=== PATIENT | female | born 1970 | race Caucasian/White ===

== ENCOUNTER 2017-04-29 11:50 | Emergency (ER) | payer MEDICAID ==
[2017-04-29] MEDS ORDERED: Sodium Chloride 0.9% 10 ML Syringe FLUSH PRN (12:16)
[2017-04-29] MEDS ORDERED: Iopamidol 612 MG/ML 100 ML Bottle IVPUSH ONE (13:04)
[2017-04-29 13:13] LABS: CHLORIDE,CL 106 mmol/L (98-107); SODIUM,NA 141 mmol/L (136-145)
--- NOTE | 2017-04-29 14:00 | EDM.PDOC ---
ED HPI GENERAL MEDICAL PROBLEM - General Chief Complaint: Abdominal Pain Stated Complaint: ABDOMINAL PAIN Time Seen by Provider: 04/29/17 11:53 Source of Information: Reports: Patient, Old Records, RN, RN Notes Reviewed History Limitations: Reports: No Limitations - History of Present Illness INITIAL COMMENTS - FREE TEXT/NARRATIVE: patient presents emergency room [facility] with multiple complaints. The patient has a strong history of chronic pain syndrome related to multiple areas. 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 The patient states that since last Saturday evening she 's had increasing lower back pain, right greater than left kidney pain, left lower groin pain, pain to the back of her head more so on the right side, nausea , and pain to the chest. The patient states she's also felt very short of breath. Onset Date: 04/26/17 - Related Data Allergies Allergy/AdvReac Type Severity Reaction Status Date / Time ciprofloxacin Allergy Rash Verified 04/29/17 13:37 methadone Allergy Other Verified 04/29/17 13:37 Penicillins Allergy Other Verified 04/29/17 13:37 erythromycin base AdvReac Severe Nausea and Verified 04/29/17 13:37 Vomiting azithromycin [From Zithromax] AdvReac Tachycardia Verified 04/29/17 13:37 fentanyl AdvReac Hallucinati Verified 04/29/17 13:37 ons ED ROS GENERAL - Review of Systems Review Of Systems: See Below Constitutional: Denies: Fever, Chills, Weakness Respiratory: Reports: Shortness of Breath. Denies: Cough Cardiovascular: Reports: Chest Pain. Denies: Lightheadedness, Palpitations GI/Abdominal: Reports: Abdominal Pain, Nausea. Denies: Diarrhea, Vomiting Musculoskeletal: Reports: Back Pain, Muscle Pain, Muscle Stiffness Skin: Reports: No Symptoms Neurological: Denies: Numbness, Paresthesia, Tingling ED EXAM, GI/ABD - Physical Exam Exam: See Below Exam Limited By: No Limitations General Appearance: Alert, No Apparent Distress, Thin, Cachetic Head: Atraumatic, Normocephalic Neck: Supple Respiratory/Chest: No Respiratory Distress, Lungs Clear, Decreased Breath Sounds Cardiovascular: Normal Peripheral Pulses, Regular Rate, Rhythm GI/Abdominal Exam: Normal Bowel Sounds, Soft, Non-Tender Back Exam: Normal Inspection Extremities: Normal Inspection Neurological: Alert, Oriented Skin Exam: Warm, Dry, Intact, Normal Color Course - Orders/Labs/Meds Orders: Active Orders 24 hr Category Date Time Status EKG 12 Lead [EKG Documentation Completion] [RC] STAT Care 04/29/17 12:16 Active Abdomen Pelvis w Cont [CT] Stat Exams 04/29/17 12:21 Taken Chest 2V [CR] Stat Exams 04/29/17 12:16 Taken BENZODIAZEPINE CONF (LCMSMS) Stat Lab 04/29/17 12:45 Received Sodium Chloride 0.9% [Saline Flush] Med 04/29/17 12:16 Active 10 ml FLUSH ASDIRECTED PRN Peripheral IV Insertion Adult [OM.PC] Routine Oth 04/29/17 12:16 Ordered Medication Orders Sodium Chloride (Saline Flush) 10 ml FLUSH ASDIRECTED PRN PRN Reason: Keep Vein Open Labs: Laboratory Tests 04/29/17 04/29/17 04/29/17 Range/Units 12:33 12:33 12:33 WBC 5.4 (4.0-10.0) x10^3/uL RBC 4.11 (4.00-5.50) x10^6/uL Hgb 13.8 (12.0-16.0) g/dL Hct 40.6 (33.0-47.0) % MCV 98.8 H (78.0-93.0) fL MCH 33.6 H (26.0-32.0) pg MCHC 34.0 (32.0-36.0) g/dL RDW Coeff of Tc 12.1 (10.0-15.0) % Plt Count 142 (130-400) x10^3/uL Neut % (Auto) 60.2 (50.0-80.0) % Lymph % (Auto) 27.7 (25.0-50.0) % Perry % (Auto) 8.9 (2.0-11.0) % Eos % (Auto) 2.8 (0.0-4.0) % Baso % (Auto) 0.4 (0.2-1.2) % Sodium 141 (136-145) mmol/L Potassium 3.7 (3.5-5.1) mmol/L Chloride 106 (98-107) mmol/L Carbon Dioxide 25 (21-32) mmol/L BUN 11 (7-18) mg/dL Creatinine 0.8 (0.55-1.02) mg/dL Est Cr Clr Drug Dosing TNP Estimated GFR (MDRD) > 60 Glucose 80 (74-106) mg/dL Lactic Acid 0.8 (0.4-2.0) mmol/L Calcium 9.0 (8.5-10.1) mg/dL Corrected Calcium 9.08 (8.5-10.1) mg/dL Total Bilirubin 0.5 (0.2-1.0) mg/dL AST 10 L (15-37) U/L ALT 14 (14-59) U/L Alkaline Phosphatase 61 (46-116) U/L Creatine Kinase 41 (26-192) U/L POC Troponin I (0.00-0.08) ng/mL C-Reactive Protein < 0.2 (<=0.9) mg/dL Total Protein 7.4 (6.4-8.2) g/dL Albumin 3.9 (3.4-5.0) g/dL Globulin 3.5 Albumin/Globulin Ratio 1.11 Amylase 66 (25-115) U/L Lipase 125 (73-393) U/L Urine Color (YELLOW) Urine Appearance (CLEAR) Urine pH (5.0-8.0) Ur Specific [place] Urine Protein (NEGATIVE) mg/dL Urine Glucose (UA) (NEGATIVE) mg/dL Urine Ketones (NEGATIVE) mg/dL Urine Occult Blood (NEGATIVE) Urine Nitrite (NEGATIVE) Urine Bilirubin (NEGATIVE) Urine Urobilinogen (0.2) EU/dL Ur Leukocyte Esterase (NEGATIVE) Urine RBC (NOT SEEN) /HPF Urine WBC (NOT SEEN) /HPF Ur Squamous Epith Cells (NEGATIVE) /HPF Urine Bacteria (NEGATIVE) /HPF Urine Mucus (NEGATIVE) /LPF Urine Opiates Screen (NEGATIVE) Ur Buprenorphine Scrn (NEGATIVE) Ur Oxycodone Screen (NEGATIVE) Urine Methadone Screen (NEGATIVE) Ur Barbiturates Screen (NEGATIVE) Ur Tricyclics Screen (NEGATIVE) Ur Amphetamine Screen (NEGATIVE) U Methamphetamines Scrn (NEGATIVE) Urine MDMA Screen (NEGATIVE) U Benzodiazepines Scrn (NEGATIVE) U Cocaine Metab Screen (NEGATIVE) U Marijuana (THC) Screen (NEGATIVE) Ethyl Alcohol < 3 (0-3) mg/dL 04/29/17 04/29/17 04/29/17 Range/Units 12:38 12:45 12:45 WBC (4.0-10.0) x10^3/uL RBC (4.00-5.50) x10^6/uL Hgb (12.0-16.0) g/dL Hct (33.0-47.0) % MCV (78.0-93.0) fL MCH (26.0-32.0) pg MCHC (32.0-36.0) g/dL RDW Coeff of Tc (10.0-15.0) % Plt Count (130-400) x10^3/uL Neut % (Auto) (50.0-80.0) % Lymph % (Auto) (25.0-50.0) % Perry % (Auto) (2.0-11.0) % Eos % (Auto) (0.0-4.0) % Baso % (Auto) (0.2-1.2) % Sodium (136-145) mmol/L Potassium (3.5-5.1) mmol/L Chloride (98-107) mmol/L Carbon Dioxide (21-32) mmol/L BUN (7-18) mg/dL Creatinine (0.55-1.02) mg/dL Est Cr Clr Drug Dosing Estimated GFR (MDRD) Glucose (74-106) mg/dL Lactic Acid (0.4-2.0) mmol/L Calcium (8.5-10.1) mg/dL Corrected Calcium (8.5-10.1) mg/dL Total Bilirubin (0.2-1.0) mg/dL AST (15-37) U/L ALT (14-59) U/L Alkaline Phosphatase (46-116) U/L Creatine Kinase (26-192) U/L POC Troponin I 0.00 (0.00-0.08) ng/mL C-Reactive Protein (<=0.9) mg/dL Total Protein (6.4-8.2) g/dL Albumin (3.4-5.0) g/dL Globulin Albumin/Globulin Ratio Amylase (25-115) U/L Lipase (73-393) U/L Urine Color Yellow (YELLOW) Urine Appearance Slightly cloudy H (CLEAR) Urine pH 5.5 (5.0-8.0) Ur Specific [place] 1.025 Urine Protein Negative (NEGATIVE) mg/dL Urine Glucose (UA) Negative (NEGATIVE) mg/dL Urine Ketones Negative (NEGATIVE) mg/dL Urine Occult Blood Negative (NEGATIVE) Urine Nitrite Negative (NEGATIVE) Urine Bilirubin Negative (NEGATIVE) Urine Urobilinogen 0.2 (0.2) EU/dL Ur Leukocyte Esterase Negative (NEGATIVE) Urine RBC 0-5 (NOT SEEN) /HPF Urine WBC 0-5 (NOT SEEN) /HPF Ur Squamous Epith Cells Moderate H (NEGATIVE) /HPF Urine Bacteria Few H (NEGATIVE) /HPF Urine Mucus Rare H (NEGATIVE) /LPF Urine Opiates Screen Negative (NEGATIVE) Ur Buprenorphine Scrn Negative (NEGATIVE) Ur Oxycodone Screen Negative (NEGATIVE) Urine Methadone Screen Negative (NEGATIVE) Ur Barbiturates Screen Negative (NEGATIVE) Ur Tricyclics Screen Negative (NEGATIVE) Ur Amphetamine Screen Negative (NEGATIVE) U Methamphetamines Scrn Negative (NEGATIVE) Urine MDMA Screen Negative (NEGATIVE) U Benzodiazepines Scrn Positive H (NEGATIVE) U Cocaine Metab Screen Negative (NEGATIVE) U Marijuana (THC) Screen Negative (NEGATIVE) Ethyl Alcohol (0-3) mg/dL Meds: Medications Generic Name Dose Route Start Last Admin Trade Name Freq PRN Reason Stop Dose Admin Sodium Chloride 10 ml 04/29/17 12:16 Saline Flush FLUSH ASDIRECTED PRN Keep Vein Open Discontinued Medications Generic Name Dose Route Start Last Admin Trade Name Freq PRN Reason Stop Dose Admin Iopamidol 100 ml 04/29/17 13:04 04/29/17 13:55 Isovue-300 (61%) IVPUSH 04/29/17 13:05 100 ml ONETIME ONE Administration - Radiology Interpretation Free Text/Narrative:: CXR: Airway disease CT Abd/Pelvis: The uterus is retroflexed with 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 Stable 6.4cm simple appearing cyst in the left lower lobe of the liver See scanned reports in EMR Departure - Departure Time of Disposition: 14:39 Disposition: Home, Self-Care 01 Condition: Good Clinical Impression: Chronic pain syndrome - Discharge Information Instructions: Chronic Pain, Adult Referrals: Eli Hamilton MD [Primary Care Provider] - Forms: ED Department Discharge Additional Instructions: 1. Stay well hydrated and rest 2. I do not see any reason not to have your surgery later this week 3. See your Primary as symptoms warrant 4. Call us with any questions/concerns - Problem List Review Problem List Initiated/Reviewed/Updated: Yes - My Orders Last 24 Hours: My Active Orders 04/29/17 12:16 EKG 12 Lead [EKG Documentation Completion] [RC] STAT Chest 2V [CR] Stat Sodium Chloride 0.9% [Saline Flush] 10 ml FLUSH ASDIRECTED PRN Peripheral IV Insertion Adult [OM.PC] Routine 04/29/17 12:21 Abdomen Pelvis w Cont [CT] Stat 04/29/17 12:45 BENZODIAZEPINE CONF (LCMSMS) Stat - Assessment/Plan Last 24 Hours: My Active Orders 04/29/17 12:16 EKG 12 Lead [EKG Documentation Completion] [RC] STAT Chest 2V [CR] Stat Sodium Chloride 0.9% [Saline Flush] 10 ml FLUSH ASDIRECTED PRN Peripheral IV Insertion Adult [OM.PC] Routine 04/29/17 12:21 Abdomen Pelvis w Cont [CT] Stat 04/29/17 12:45 BENZODIAZEPINE CONF (LCMSMS) Stat Assessment:: Chronic Pain Syndrome Plan: labs and CT scan were reviewed with the patient. No emergency was found. It is quite possible her symptoms could be exacerbation of her chronic pain syndrome, however that may be less likely as she is taking her prescription pain medication. I believe at this point the patient is medically okay to proceed with surgery in 2 days. The patient states that she will follow up with her primary care provider prior to surgery. I recommend that the patient follow up with her primary care provider as her symptoms warrant. The patient verbalizes understanding of her discharge instructions, labs, and CT scan.
== END 2017-04-29 15:15 | disposition home or self-care (01) ==
LOC: VM.ED 11:50
DX: G89.4 Chronic pain syndrome (principal); Z88.8 Allergy status to other drugs, medicaments and biological substances; Z88.1 Allergy status to other antibiotic agents; Z88.0 Allergy status to penicillin
CPT/HCPCS: 36415; 71046; 74177; 80053; 80305; 81001; 82150; 82550; 83605; 83690; 84484; 85025; 86140; 93005; 99285; G0480; Q9967

== ENCOUNTER 2019-04-24 04:55 | Emergency (ER) | payer MEDICAID ==
[2019-04-24] MEDS ORDERED: Sodium Chloride 0.9% 10 ML Syringe FLUSH PRN (06:00)
[2019-04-24] MEDS ORDERED: Sodium Chloride 0.9% 1,000 ML IV ONE (06:05)
[2019-04-24] MEDS ORDERED: Metoclopramide 10 MG/2 ML SDV IVPUSH ONE (06:05)
[2019-04-24 06:27] LABS: BARBITURATE SCREEN,URINE NEGATIVE (NEGATIVE); BENZODIAZEPINES SCREEN,URINE POSITIVE (NEGATIVE); EDDP,URINE SCREEN NEGATIVE (NEGATIVE); METHAMPHETAMINE SCREEN, URINE NEGATIVE (NEGATIVE); TCA SCREEN,URINE NEGATIVE (NEGATIVE); THC SCREEN,URINE 50 NG/ML NEGATIVE (NEGATIVE)
[2019-04-24 06:47] LABS: ANION GAP 14.1 mmol/L (10-20); CHLORIDE,CL 105 mmol/L (98-107); SODIUM,NA 142 mmol/L (136-145)
[2019-04-24] MEDS ORDERED: Iopamidol 612 MG/ML 100 ML Bottle IVPUSH ONE (07:56)
--- NOTE | 2019-04-24 08:56 | CT ---
[id number] CT/CT Abdomen Pelvis W IV EXAM: CT Abdomen Pelvis W IV CLINICAL DATA: ABDOMINAL PAIN COMPARISON: CORRELATION IS MADE WITH THE EXAM OF MAY 07, 2018 FINDINGS: There are small stable hepatic cysts The gallbladder is not distended. The gallbladder wall is normal There is no evidence of appendicitis The pelvis shows no mass or adenopathy The liver and spleen, kidneys and adrenals, pancreas and aorta show no acute abnormalities The visceral vessels demonstrate normal enhancement. Thickening of the urinary bladder wall likely relates to incomplete distention There is no bowel wall thickening or pneumatosis intestinalis There is no free fluid or free air IMPRESSION: NO DEFINITE ACUTE PROCESS Judson Lorenzana MD 04/24/19 0854 Thank you for allowing us to participate in the care of your patient.
--- NOTE | 2019-04-24 14:00 | EDM.PDOC ---
ED HPI GENERAL MEDICAL PROBLEM - General Chief Complaint: Abdominal Pain Stated Complaint: Abdominal Pain Time Seen by Provider: 04/24/19 05:10 Source of Information: Reports: Patient History Limitations: Reports: No Limitations - History of Present Illness INITIAL COMMENTS - FREE TEXT/NARRATIVE: Pt. presents to ER with complaints of abdominal discomfort, bloating, distention that she has been experiencing for months. Pt. states that she he a history of pelvic mass and has undergone hysterectomy for chronic abdominal discomfort. She appears to have been seen in clinic on 04/15/2019 with complaints of epigastric pain, fullness, and nausea. She states that she has had decreased bowel movements, both in size and frequency as well. She also has a history of a liver cyst and feels that this is back as well. She states that she has been chilled. She has not been checking her temperature. Denies any jaundice. No blood in her stools. She states that she has been experiencing pruritus, especially to torso. Onset Date: 04/07/19 Location: Reports: Abdomen Quality: Reports: Ache, Dull, Pressure, Sharp Severity: Severe Worsens with: Reports: Movement Associated Symptoms: Reports: Fever/Chills, Nausea/Vomiting Abdominal Pain Score (Numeric/FACES): 7 - Related Data Allergies Allergy/AdvReac Type Severity Reaction Status Date / Time ciprofloxacin Allergy Rash Verified 04/24/19 09:06 methadone Allergy Other Verified 04/24/19 09:06 Penicillins Allergy Other Verified 04/24/19 09:06 erythromycin base AdvReac Severe Nausea and Verified 04/24/19 09:06 Vomiting azithromycin [From Zithromax] AdvReac Tachycardia Verified 04/24/19 09:06 fentanyl AdvReac Hallucinati Verified 04/24/19 09:06 ons Home Meds: Home Meds ALPRAZolam 2 mg PO BID PRN 04/29/17 [History] Amoxicillin [Amoxil] 875 mg PO Q12H 04/29/17 [History] Aspirin 81 mg PO ASDIRECTED PRN 04/29/17 [History] Clobetasol [Temovate 0.05% Crm] 1 applic TOP DAILY 04/29/17 [History] Hydrocodone/Acetaminophen [Hydrocodon-Acetaminophn 10-325] 1 tab PO Q6H PRN [History] Ketoconazole [Nizoral 2% Crm] 1 applic TOP DAILY 04/29/17 [History] Lidocaine/Prilocaine [EMLA Crm] 1 applic TOP ASDIRECTED 04/29/17 [History] Naproxen Sodium 220 - 440 mg PO BID PRN 04/29/17 [History] Ondansetron [Ondansetron ODT] 8 mg PO TID PRN 04/29/17 [History] Past Medical History Cardiovascular History: Reports: Other (See Below) Other Cardiovascular History: cerebrovascular disease Respiratory History: Reports: Other (See Below) Other Respiratory History: pulmonary nodule Gastrointestinal History: Reports: Other (See Below) Other Gastrointestinal History: hepatic cyst. chronic generalized abd pain SENIOR ACCOUNTING SPECIALIST History: Reports: Endometriosis, Other (See Below) Other SENIOR ACCOUNTING SPECIALIST History: menorrhagia with irreg cycle breast cyst. chronic pelvic pain. endometrioma of ovary. ovarian mass. 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 Psychiatric History: Reports: Anxiety, PTSD - Past Surgical History Female Surgical History: Reports: Oophorectomy Social & Family History - Tobacco Use Smoking Status *Q: Current Every Day Smoker Years of Tobacco use: 26 Packs/Tins Daily: 0.5 - Recreational Drug Use Recreational Drug Use: No ED ROS GENERAL - Review of Systems Review Of Systems: See Below Constitutional: Reports: No Symptoms HEENT: Reports: No Symptoms Respiratory: Reports: No Symptoms Cardiovascular: Reports: No Symptoms Endocrine: Reports: No Symptoms GI/Abdominal: Reports: Abdominal Pain, Anorexia, Decreased Appetite, Distension , Nausea, Vomiting : Reports: No Symptoms Musculoskeletal: Reports: No Symptoms Skin: Reports: Dryness, Other Neurological: Reports: No Symptoms Psychiatric: Reports: No Symptoms Hematologic/Lymphatic: Reports: No Symptoms Immunologic: Reports: No Symptoms ED EXAM, GENERAL - Physical Exam Exam: See Below Exam Limited By: No Limitations General Appearance: Alert, WD/WN, No Apparent Distress Eye Exam: Bilateral Eye: EOMI, PERRL Nose: Normal Inspection, Normal Mucosa, No Blood Throat/Mouth: Normal Inspection, Normal Lips, Normal Teeth, Normal Gums, Normal Oropharynx, Normal Voice, No Airway Compromise Head: Atraumatic, Normocephalic Neck: Normal Inspection, Supple, Non-Tender, Full Range of Motion Respiratory/Chest: No Respiratory Distress, Lungs Clear, Normal Breath Sounds, No Accessory Muscle Use, Chest Non-Tender Cardiovascular: Normal Peripheral Pulses, Regular Rate, Rhythm, No Edema, No Gallop, No JVD, No Murmur, No Rub Peripheral Pulses: 4+: Radial (L) GI/Abdominal: Soft, No Distention, No Mass, Guarding, Tender, Other ( exquisitely tender to palpation with guarding. Complains of rebound tenderness as well.) (Female) Exam: Deferred Rectal (Female) Exam: Deferred Back Exam: Normal Inspection, Full Range of Motion Extremities: Normal Inspection, Normal Range of Motion, Non-Tender, No Pedal Edema, Normal Capillary Refill Neurological: Alert, Oriented, CN II-XII Intact, Normal Cognition, Normal Gait, Normal Reflexes, No Motor/Sensory Deficits Psychiatric: Tearful Skin Exam: Warm, Dry, Intact, Normal Color Lymphatic: No Adenopathy Course - Vital Signs Last Recorded V/S: Last Vital Signs Temp 36.6 C 04/24/19 05:00 Pulse 77 04/24/19 05:00 Resp 16 04/24/19 05:00 BP 108/64 04/24/19 05:00 Pulse Ox 98 04/24/19 05:00 - Orders/Labs/Meds Orders: Active Orders 24 hr Category Date Time Status Peripheral IV Insertion Adult [OM.PC] Routine Oth 04/24/19 06:01 Ordered Labs: Laboratory Tests 04/24/19 04/24/19 04/24/19 Range/Units 06:00 06:00 06:00 WBC (4.0-10.0) x10^3/uL RBC (4.00-5.50) x10^6/uL Hgb (12.0-16.0) g/dL Hct (33.0-47.0) % MCV (78.0-93.0) fL MCH (26.0-32.0) pg MCHC (32.0-36.0) g/dL RDW Coeff of Tc (10.0-15.0) % Plt Count (130-400) x10^3/uL Neut % (Auto) (50.0-80.0) % Lymph % (Auto) (25.0-50.0) % [place] % (Auto) (2.0-11.0) % Eos % (Auto) (0.0-4.0) % Baso % (Auto) (0.2-1.2) % PT (10.0-12.8) SEC INR (2.0-3.5) Sodium (136-145) mmol/L Potassium (3.5-5.1) mmol/L Chloride (98-107) mmol/L Carbon Dioxide (21-32) mmol/L Anion Gap (10-20) mmol/L BUN (7-18) mg/dL Creatinine (0.55-1.02) mg/dL Est Cr Clr Drug Dosing Estimated GFR (MDRD) Glucose (74-106) mg/dL Lactic Acid (0.4-2.0) mmol/L Calcium (8.5-10.1) mg/dL Corrected Calcium (8.5-10.1) mg/dL Phosphorus (2.6-4.7) mg/dL Magnesium (1.8-2.4) mg/dL Total Bilirubin (0.2-1.0) mg/dL AST (15-37) U/L ALT (14-59) U/L Alkaline Phosphatase (46-116) U/L C-Reactive Protein (<=0.9) mg/dL Total Protein (6.4-8.2) g/dL Albumin (3.4-5.0) g/dL Globulin Albumin/Globulin Ratio Amylase (25-115) U/L Lipase (73-393) U/L Urine Color Yellow (YELLOW) Urine Appearance Clear (CLEAR) Urine pH 5.5 (5.0-8.0) Ur Specific [place] 1.015 Urine Protein Negative (NEGATIVE) mg/dL Urine Glucose (UA) Negative (NEGATIVE) mg/dL Urine Ketones Negative (NEGATIVE) mg/dL Urine Occult Blood Negative (NEGATIVE) Urine Nitrite Negative (NEGATIVE) Urine Bilirubin Negative (NEGATIVE) Urine Urobilinogen 0.2 (0.2) EU/dL Ur Leukocyte Esterase Negative (NEGATIVE) Urine RBC 0-5 (NOT SEEN) /HPF Urine WBC 0-5 (NOT SEEN) /HPF Ur Squamous Epith Cells Rare (NEGATIVE) /HPF Amorphous Sediment Rare Urine Bacteria Rare (NEGATIVE) /HPF Urine Mucus Few H (NEGATIVE) /LPF POC Urine HCG, Qual Negative (NEGATIVE) Urine Opiates Screen Positive H (NEGATIVE) Ur Buprenorphine Scrn Negative (NEGATIVE) Ur Oxycodone Screen Negative (NEGATIVE) Ur EDDP (Meth Metab) Negative (NEGATIVE) Urine Methadone Screen Negative (NEGATIVE) Ur Barbiturates Screen Negative (NEGATIVE) Ur Tricyclics Screen Negative (NEGATIVE) Ur Phencyclidine Scrn Negative (NEGATIVE) Ur Amphetamine Screen Negative (NEGATIVE) U Methamphetamines Scrn Negative (NEGATIVE) Urine MDMA Screen Negative (NEGATIVE) U Benzodiazepines Scrn Positive H (NEGATIVE) U Cocaine Metab Screen Negative (NEGATIVE) U Marijuana (THC) Screen Negative (NEGATIVE) 04/24/19 04/24/19 04/24/19 Range/Units 06:17 06:17 06:17 WBC 6.1 (4.0-10.0) x10^3/uL RBC 4.27 (4.00-5.50) x10^6/uL Hgb 14.4 (12.0-16.0) g/dL Hct 41.0 (33.0-47.0) % MCV 96.0 H (78.0-93.0) fL MCH 33.7 H (26.0-32.0) pg MCHC 35.1 (32.0-36.0) g/dL RDW Coeff of Tc 12.8 (10.0-15.0) % Plt Count 176 (130-400) x10^3/uL Neut % (Auto) 56.7 (50.0-80.0) % Lymph % (Auto) 33.1 (25.0-50.0) % [place] % (Auto) 7.4 (2.0-11.0) % Eos % (Auto) 2.6 (0.0-4.0) % Baso % (Auto) 0.2 (0.2-1.2) % PT 10.2 (10.0-12.8) SEC INR 0.9 L (2.0-3.5) Sodium 142 (136-145) mmol/L Potassium 4.1 (3.5-5.1) mmol/L Chloride 105 (98-107) mmol/L Carbon Dioxide 27 (21-32) mmol/L Anion Gap 14.1 (10-20) mmol/L BUN 6 L (7-18) mg/dL Creatinine 0.8 (0.55-1.02) mg/dL Est Cr Clr Drug Dosing TNP Estimated GFR (MDRD) > 60 Glucose 94 (74-106) mg/dL Lactic Acid (0.4-2.0) mmol/L Calcium 9.1 (8.5-10.1) mg/dL Corrected Calcium 9.10 (8.5-10.1) mg/dL Phosphorus 4.0 (2.6-4.7) mg/dL Magnesium 2.1 (1.8-2.4) mg/dL Total Bilirubin 0.5 (0.2-1.0) mg/dL AST 11 L (15-37) U/L ALT 18 (14-59) U/L Alkaline Phosphatase 68 (46-116) U/L C-Reactive Protein < 0.2 (<=0.9) mg/dL Total Protein 7.3 (6.4-8.2) g/dL Albumin 4.0 (3.4-5.0) g/dL Globulin 3.3 Albumin/Globulin Ratio 1.21 Amylase 74 (25-115) U/L Lipase 128 (73-393) U/L Urine Color (YELLOW) Urine Appearance (CLEAR) Urine pH (5.0-8.0) Ur Specific [place] Urine Protein (NEGATIVE) mg/dL Urine Glucose (UA) (NEGATIVE) mg/dL Urine Ketones (NEGATIVE) mg/dL Urine Occult Blood (NEGATIVE) Urine Nitrite (NEGATIVE) Urine Bilirubin (NEGATIVE) Urine Urobilinogen (0.2) EU/dL Ur Leukocyte Esterase (NEGATIVE) Urine RBC (NOT SEEN) /HPF Urine WBC (NOT SEEN) /HPF Ur Squamous Epith Cells (NEGATIVE) /HPF Amorphous Sediment Urine Bacteria (NEGATIVE) /HPF Urine Mucus (NEGATIVE) /LPF POC Urine HCG, Qual (NEGATIVE) Urine Opiates Screen (NEGATIVE) Ur Buprenorphine Scrn (NEGATIVE) Ur Oxycodone Screen (NEGATIVE) Ur EDDP (Meth Metab) (NEGATIVE) Urine Methadone Screen (NEGATIVE) Ur Barbiturates Screen (NEGATIVE) Ur Tricyclics Screen (NEGATIVE) Ur Phencyclidine Scrn (NEGATIVE) Ur Amphetamine Screen (NEGATIVE) U Methamphetamines Scrn (NEGATIVE) Urine MDMA Screen (NEGATIVE) U Benzodiazepines Scrn (NEGATIVE) U Cocaine Metab Screen (NEGATIVE) U Marijuana (THC) Screen (NEGATIVE) 04/24/19 Range/Units 06:17 WBC (4.0-10.0) x10^3/uL RBC (4.00-5.50) x10^6/uL Hgb (12.0-16.0) g/dL Hct (33.0-47.0) % MCV (78.0-93.0) fL MCH (26.0-32.0) pg MCHC (32.0-36.0) g/dL RDW Coeff of Tc (10.0-15.0) % Plt Count (130-400) x10^3/uL Neut % (Auto) (50.0-80.0) % Lymph % (Auto) (25.0-50.0) % [place] % (Auto) (2.0-11.0) % Eos % (Auto) (0.0-4.0) % Baso % (Auto) (0.2-1.2) % PT (10.0-12.8) SEC INR (2.0-3.5) Sodium (136-145) mmol/L Potassium (3.5-5.1) mmol/L Chloride (98-107) mmol/L Carbon Dioxide (21-32) mmol/L Anion Gap (10-20) mmol/L BUN (7-18) mg/dL Creatinine (0.55-1.02) mg/dL Est Cr Clr Drug Dosing Estimated GFR (MDRD) Glucose (74-106) mg/dL Lactic Acid 1.0 (0.4-2.0) mmol/L Calcium (8.5-10.1) mg/dL Corrected Calcium (8.5-10.1) mg/dL Phosphorus (2.6-4.7) mg/dL Magnesium (1.8-2.4) mg/dL Total Bilirubin (0.2-1.0) mg/dL AST (15-37) U/L ALT (14-59) U/L Alkaline Phosphatase (46-116) U/L C-Reactive Protein (<=0.9) mg/dL Total Protein (6.4-8.2) g/dL Albumin (3.4-5.0) g/dL Globulin Albumin/Globulin Ratio Amylase (25-115) U/L Lipase (73-393) U/L Urine Color (YELLOW) Urine Appearance (CLEAR) Urine pH (5.0-8.0) Ur Specific [place] Urine Protein (NEGATIVE) mg/dL Urine Glucose (UA) (NEGATIVE) mg/dL Urine Ketones (NEGATIVE) mg/dL Urine Occult Blood (NEGATIVE) Urine Nitrite (NEGATIVE) Urine Bilirubin (NEGATIVE) Urine Urobilinogen (0.2) EU/dL Ur Leukocyte Esterase (NEGATIVE) Urine RBC (NOT SEEN) /HPF Urine WBC (NOT SEEN) /HPF Ur Squamous Epith Cells (NEGATIVE) /HPF Amorphous Sediment Urine Bacteria (NEGATIVE) /HPF Urine Mucus (NEGATIVE) /LPF POC Urine HCG, Qual (NEGATIVE) Urine Opiates Screen (NEGATIVE) Ur Buprenorphine Scrn (NEGATIVE) Ur Oxycodone Screen (NEGATIVE) Ur EDDP (Meth Metab) (NEGATIVE) Urine Methadone Screen (NEGATIVE) Ur Barbiturates Screen (NEGATIVE) Ur Tricyclics Screen (NEGATIVE) Ur Phencyclidine Scrn (NEGATIVE) Ur Amphetamine Screen (NEGATIVE) U Methamphetamines Scrn (NEGATIVE) Urine MDMA Screen (NEGATIVE) U Benzodiazepines Scrn (NEGATIVE) U Cocaine Metab Screen (NEGATIVE) U Marijuana (THC) Screen (NEGATIVE) Meds: Medications Discontinued Medications Generic Name Dose Route Start Last Admin Trade Name Freq PRN Reason Stop Dose Admin Sodium Chloride 1,000 mls @ 1,000 mls/hr 04/24/19 06:05 04/24/19 06:35 Normal Saline IV 04/24/19 07:04 1,000 mls/hr .BOLUS ONE Administration Iopamidol 100 ml 04/24/19 07:56 04/24/19 10:01 Isovue-300 (61%) IVPUSH 04/24/19 07:57 100 ml ONETIME ONE Administration Metoclopramide HCl 10 mg 04/24/19 06:05 04/24/19 06:35 Reglan IVPUSH 04/24/19 06:06 10 mg ONETIME ONE Administration Sodium Chloride 10 ml 04/24/19 06:00 Saline Flush FLUSH ASDIRECTED PRN Keep Vein Open - Radiology Interpretation Free Text/Narrative:: CT abdomen and pelvis with contrast obtained and were negative for acute pathology. Departure - Departure Time of Disposition: 09:20 Disposition: Home, Self-Care 01 Clinical Impression: Abdominal pain - Discharge Information Instructions: Abdominal Pain, Adult, Abdominal Bloating Referrals: Eli Hamilton MD [Primary Care Provider] - Forms: ED Department Discharge Additional Instructions: Home to rest. Follow-up with [facility] as needed. Sepsis Event Note - Evaluation Sepsis Screening Result: No Definite Risk - Focused Exam Vital Signs: Vital Signs Temp Pulse Resp BP Pulse Ox 04/24/19 05:00 36.6 C 77 16 108/64 98 Date Exam was Performed: 04/24/19 Time Exam was Performed: 13:44 - My Orders Last 24 Hours: My Active Orders 04/24/19 06:01 Peripheral IV Insertion Adult [OM.PC] Routine - Assessment/Plan Last 24 Hours: My Active Orders 04/24/19 06:01 Peripheral IV Insertion Adult [OM.PC] Routine Plan: Pt. story is very hard to follow. She was reassured that there was not acute pathological findings noted on CT. Advised to follow-up in clinic as needed and was reassured that there was no acute life-threatening finding noted on CT. Continue with current medications.
== END 2019-04-24 09:20 | disposition home or self-care (01) ==
LOC: VM.ED 04:55
DX: R10.13 Epigastric pain (principal); F17.210 Nicotine dependence, cigarettes, uncomplicated; F41.9 Anxiety disorder, unspecified; Z79.82 Long term (current) use of aspirin; Z79.899 Other long term (current) drug therapy; Z88.1 Allergy status to other antibiotic agents; Z88.0 Allergy status to penicillin; Z88.5 Allergy status to narcotic agent
CPT/HCPCS: 36415; 74177; 80053; 80305; 81001; 81025; 82150; 83605; 83690; 83735; 84100; 85025; 85610; 86140; 96361; 96374; 99284; J2765; J7030; Q9967

== ENCOUNTER 2019-09-29 01:00 | Emergency (ER) | payer MEDICAID ==
[2019-09-29] MEDS ORDERED: Sodium Chloride 0.9% 10 ML Syringe FLUSH PRN (01:31)
--- NOTE | 2019-09-29 02:08 | EDM.PDOC ---
ED HPI GENERAL MEDICAL PROBLEM - General Chief Complaint: General Stated Complaint: Vague / General Complaints Time Seen by Provider: 09/29/19 01:09 Source of Information: Reports: Patient History Limitations: Reports: No Limitations - History of Present Illness INITIAL COMMENTS - FREE TEXT/NARRATIVE: Pt. presents to ER with numerous complaints. Pt. states that she has been exp eriencing a fever (subjective and as noted in clinic), myalgias, arthralgias, unintended weight loss, and throat pain for at least the past 2 weeks. She states that she has had intermittent cough and noted some blood tinged sputum. She reports swelling to the lymph nodes of her neck, and describes what sounds like lymphadenopathy to her axillae. She complains of sore throat and is scheduled to undergo a biopsy in the near future.She also complains of painful lumps to her extremities, R side greater than left. She also complains of some rash to her extremities and torso and has been experiencing this for some time. She was actually complaining of rash and pruritus to her extremities when she was seen by me in the ER in April for abdominal pain. She states that the rash comes and goes. She has yet to see derm. Pt. also complains of some intermittent chest discomfort. She states that the discomfort is always there, but is worse with deep breathing. She complains of bone pain to her neck, back, ribs, arms (R greater than L) as well as to her knees and ankles. She is scheduled to seen rheumatology at the end of Oct. She complains of arthralgias to most joints as well and neck and back. Pt. had a telehealth visit today with Dr. Hamilton. Her note will be attached to this document, but pt. reports similar symptoms tonight. She was febrile in the clinic today (temp 101) and she was scheduled for labs to be taken tomorrow, including CBC, CRP, CMP, BCx2, and SARS-COV-2 RNA. Pt. is concerned that she has been experiencing headache and pain/weakness in her extremities, R greater than L. She states that she feels fatigued and globally weak. She states that he Mother stated that she thought she had some confused speech as well recently, which has also been intermittent in nature. T he pain and weakness and extremity weakness has been going on for some time (at least a week). Pt. denies any abdominal discomfort. No dysuria. Denies any diarrhea. She states that she did vomit once today after eating. Pt. has a history of advanced tooth decay. She states that she has been told she needs to have all of her teeth extracted, but this has not been set up at this point. Associated Symptoms: Reports: Confusion (intermittent confused speech,), Chest Pain, Cough, Fever/Chills, Headaches, Loss of Appetite, Malaise, Nausea/Vomiting, Rash, Weakness Generalized Pain Score (Numeric/FACES): 8 - Related Data Allergies Allergy/AdvReac Type Severity Reaction Status Date / Time ciprofloxacin Allergy Rash Verified 09/29/19 01:11 methadone Allergy Other Verified 09/29/19 01:11 Penicillins Allergy Other Verified 09/29/19 01:11 erythromycin base AdvReac Severe Nausea and Verified 09/29/19 01:11 Vomiting azithromycin [From Zithromax] AdvReac Tachycardia Verified 09/29/19 01:11 fentanyl AdvReac Hallucinati Verified 09/29/19 01:11 ons Home Meds: Home Meds ALPRAZolam 2 mg PO BID PRN 04/29/17 [History] Amoxicillin [Amoxil] 875 mg PO Q12H 04/29/17 [History] Aspirin 81 mg PO ASDIRECTED PRN 04/29/17 [History] Clobetasol [Temovate 0.05% Crm] 1 applic TOP DAILY 04/29/17 [History] Hydrocodone/Acetaminophen [Hydrocodon-Acetaminophn 10-325] 1 tab PO Q6H PRN 04/29/17 [History] Ketoconazole [Nizoral 2% Crm] 1 applic TOP DAILY 04/29/17 [History] Lidocaine/Prilocaine [EMLA Crm] 1 applic TOP ASDIRECTED 04/29/17 [History] Naproxen Sodium 220 - 440 mg PO BID PRN 04/29/17 [History] Ondansetron [Ondansetron ODT] 8 mg PO TID PRN 04/29/17 [History] Past Medical History Cardiovascular History: Reports: Other (See Below) Other Cardiovascular History: cerebrovascular disease Respiratory History: Reports: Other (See Below) Other Respiratory History: pulmonary nodule Gastrointestinal History: Reports: Other (See Below) Other Gastrointestinal History: hepatic cyst. chronic generalized abd pain [employer] History: Reports: Endometriosis, Other (See Below) Other [employer] History: menorrhagia with irreg cycle breast cyst. chronic pelvic pain. endometrioma of ovary. ovarian mass. 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 Psychiatric History: Reports: Anxiety, PTSD - Past Surgical History Female Surgical History: Reports: Oophorectomy ED ROS GENERAL - Review of Systems Review Of Systems: See Below Constitutional: Reports: Fever, Chills, Malaise, Weakness, Fatigue, Decreased Appetite, Weight Loss HEENT: Reports: Dental Pain Respiratory: Reports: Shortness of Breath, Cough, Sputum, Hemoptysis Cardiovascular: Reports: Chest Pain, Lightheadedness, Palpitations Endocrine: Reports: Fatigue GI/Abdominal: Reports: Nausea, Vomiting : Reports: Frequency Musculoskeletal: Reports: Shoulder Pain, Arm Pain, Back Pain, Leg Pain, Joint Pain, Joint Swelling, Muscle Pain Skin: Reports: Pruritis, Rash, Erythema Neurological: Reports: Confusion (confused speech by history), Headache, Paresthesia (Intermittent in R upper and lower extremity, but associated with pain.). Denies: Change in Speech, Gait Disturbance Psychiatric: Reports: Anxiety Hematologic/Lymphatic: Reports: Swollen Glands ED EXAM, GENERAL - Physical Exam Exam: See Below Exam Limited By: No Limitations General Appearance: Alert, WD/WN, Anxious, Moderate Distress Eye Exam: Bilateral Eye: EOMI, Normal Fundi, Normal Inspection, PERRL Ears: Normal External Exam, Normal Canal, Hearing Grossly Normal, Normal TMs Ear Exam: Bilateral Ear: TM normal Nose: Normal Inspection, No Blood Throat/Mouth: Normal Lips, No Airway Compromise, Other (severe decay/dental caries with numerous fractured teeth. No unilateral pharyngeal swelling. No obvious large abscesses noted. Severe periodontal disease with some cellulitis and maceration of the gums noted.) Head: Atraumatic, Normocephalic Neck: Normal Inspection, Full Range of Motion, Tender Lateral, Other (Tenderness to palpation of anterior and posterior cervical chain. Mild anterior cervical adenopathy.) Respiratory/Chest: Lungs Clear, No Accessory Muscle Use, Other (respirophasic chest pain) Cardiovascular: Normal Peripheral Pulses, Regular Rate, Rhythm, No Edema, No Murmur Peripheral Pulses: 4+: Radial (R) GI/Abdominal: Soft, Non-Tender, No Organomegaly, No Distention (Female) Exam: Deferred Rectal (Female) Exam: Deferred Back Exam: Full Range of Motion, Other (complains of tenderness to midline neck and back pain, as well as discomfort to the posterior lower ribs.) Extremities: Normal Inspection, Leg Pain, Other ([place] tenderness to but upper and lower extremities. Severe arthralgias. No obvious trauma noted. ) Neurological: Alert, Oriented, CN II-XII Intact, Normal Cognition, Normal Gait, No Motor/Sensory Deficits Psychiatric: Normal Affect, Anxious Skin Exam: Warm, Dry, Intact, Normal Color, Other (Reports "rash". There is no widespread urticaria or erythema. She has one small subcentimeter erthematous discoid lesion to her L posterior proximal forarm that she is very worried about, but no other lesions. ) Lymphatic: Other (Discomfort on palpation to prearicular, postauricular, anterior and posterior cervical nodes. Minimal lymphadenopathy noted.) EKG INTERPRETATION Rhythm: NSR Hamilton: Normal P-Wave: Present QRS: Normal ST-T: Normal QT: Normal Course - Vital Signs Last Recorded V/S: Last Vital Signs Temp 36.4 C 09/29/19 01:05 Pulse 90 09/29/19 01:05 Resp 14 09/29/19 01:05 BP 133/87 09/29/19 01:05 Pulse Ox 100 09/29/19 01:05 - Orders/Labs/Meds Orders: Active Orders 24 hr Category Date Time Status EKG Documentation Completion [RC] STAT Care 09/29/19 01:31 Active Chest 2V [CR] Stat Exams 09/29/19 01:29 Ordered Head wo Cont [CT] Stat Exams 09/29/19 01:30 Ordered CULTURE BLOOD [BC] Stat Lab 09/29/19 01:32 Ordered CULTURE BLOOD [BC] Stat Lab 09/29/19 01:32 Ordered CULTURE STREP A CONFIRMATION [RM] Stat Lab 09/29/19 01:30 Results STREP SCRN A RAPID W CULT CONF [RM] Stat Lab 09/29/19 01:32 Ordered Sodium Chloride 0.9% [Saline Flush] Med 09/29/19 01:31 Active 10 ml FLUSH ASDIRECTED PRN Blood Culture x2 Reflex Set [OM.PC] Stat Oth 09/29/19 01:31 Ordered Peripheral IV Insertion Adult [OM.PC] Routine Oth 09/29/19 01:31 Ordered Medication Orders Sodium Chloride (Saline Flush) 10 ml FLUSH ASDIRECTED PRN PRN Reason: Keep Vein Open Labs: Laboratory Tests 09/29/19 09/29/19 09/29/19 Range/Units 01:30 01:30 01:30 WBC (4.0-10.0) x10^3/uL RBC (4.00-5.50) x10^6/uL Hgb (12.0-16.0) g/dL Hct (33.0-47.0) % MCV (78.0-93.0) fL MCH (26.0-32.0) pg MCHC (32.0-36.0) g/dL RDW Coeff of Tc (10.0-15.0) % Plt Count (130-400) x10^3/uL Neut % (Auto) (50.0-80.0) % Lymph % (Auto) (25.0-50.0) % [place] % (Auto) (2.0-11.0) % Eos % (Auto) (0.0-4.0) % Baso % (Auto) (0.2-1.2) % PT (9.5-12.3) SEC INR (2.0-3.5) Sodium (136-145) mmol/L Potassium (3.5-5.1) mmol/L Chloride (98-107) mmol/L Carbon Dioxide (21-32) mmol/L Anion Gap (10-20) mmol/L BUN (7-18) mg/dL Creatinine (0.55-1.02) mg/dL Est Cr Clr Drug Dosing mL/min Estimated GFR (MDRD) Glucose (74-106) mg/dL Lactic Acid (0.4-2.0) mmol/L Calcium (8.5-10.1) mg/dL Corrected Calcium (8.5-10.1) mg/dL Magnesium (1.8-2.4) mg/dL Total Bilirubin (0.2-1.0) mg/dL AST (15-37) U/L ALT (14-59) U/L Alkaline Phosphatase (46-116) U/L Troponin I (<=0.056) ng/mL C-Reactive Protein (<=0.9) mg/dL Total Protein (6.4-8.2) g/dL Albumin (3.4-5.0) g/dL Globulin Albumin/Globulin Ratio Urine Color Yellow (YELLOW) Urine Appearance Clear (CLEAR) Urine pH 6.5 (5.0-8.0) Ur Specific [place] 1.015 Urine Protein Negative (NEGATIVE) mg/dL Urine Glucose (UA) Negative (NEGATIVE) mg/dL Urine Ketones Negative (NEGATIVE) mg/dL Urine Occult Blood Negative (NEGATIVE) Urine Nitrite Negative (NEGATIVE) Urine Bilirubin Negative (NEGATIVE) Urine Urobilinogen 0.2 (0.2) EU/dL Ur Leukocyte Esterase Negative (NEGATIVE) Urine HCG, Qual Negative (NEGATIVE) Urine Opiates Screen Positive H (NEGATIVE) Ur Buprenorphine Scrn Negative (NEGATIVE) Ur Oxycodone Screen Negative (NEGATIVE) Ur EDDP (Meth Metab) Negative (NEGATIVE) Urine Methadone Screen Negative (NEGATIVE) Ur Barbituates Screen Negative (NEGATIVE) Ur Tricyclics Screen Negative (NEGATIVE) Ur Phencyclidine Scrn Negative (NEGATIVE) Ur Amphetamines Screen Negative (NEGATIVE) U Methamphetamines Scrn Negative (NEGATIVE) Urine MDMA Screen Negative (NEGATIVE) U Benzodiazepines Scrn Positive H (NEGATIVE) Urine Cocaine Screen Negative (NEGATIVE) U Marijuana (THC) Screen Negative (NEGATIVE) Ethyl Alcohol (0-3) mg/dL COVID-19 (SPEEDY) (NEGATIVE) 09/29/19 09/29/19 09/29/19 Range/Units 01:32 01:48 01:48 WBC 9.0 (4.0-10.0) x10^3/uL RBC 4.59 (4.00-5.50) x10^6/uL Hgb 15.4 (12.0-16.0) g/dL Hct 43.8 (33.0-47.0) % MCV 95.4 H (78.0-93.0) fL MCH 33.6 H (26.0-32.0) pg MCHC 35.2 (32.0-36.0) g/dL RDW Coeff of Tc 11.8 (10.0-15.0) % Plt Count 184 (130-400) x10^3/uL Neut % (Auto) 76.0 (50.0-80.0) % Lymph % (Auto) 17.7 L (25.0-50.0) % [place] % (Auto) 5.1 (2.0-11.0) % Eos % (Auto) 1.1 (0.0-4.0) % Baso % (Auto) 0.1 L (0.2-1.2) % PT 9.6 (9.5-12.3) SEC INR 0.9 L (2.0-3.5) Sodium (136-145) mmol/L Potassium (3.5-5.1) mmol/L Chloride (98-107) mmol/L Carbon Dioxide (21-32) mmol/L Anion Gap (10-20) mmol/L BUN (7-18) mg/dL Creatinine (0.55-1.02) mg/dL Est Cr Clr Drug Dosing mL/min Estimated GFR (MDRD) Glucose (74-106) mg/dL Lactic Acid (0.4-2.0) mmol/L Calcium (8.5-10.1) mg/dL Corrected Calcium (8.5-10.1) mg/dL Magnesium (1.8-2.4) mg/dL Total Bilirubin (0.2-1.0) mg/dL AST (15-37) U/L ALT (14-59) U/L Alkaline Phosphatase (46-116) U/L Troponin I (<=0.056) ng/mL C-Reactive Protein (<=0.9) mg/dL Total Protein (6.4-8.2) g/dL Albumin (3.4-5.0) g/dL Globulin Albumin/Globulin Ratio Urine Color (YELLOW) Urine Appearance (CLEAR) Urine pH (5.0-8.0) Ur Specific [place] Urine Protein (NEGATIVE) mg/dL Urine Glucose (UA) (NEGATIVE) mg/dL Urine Ketones (NEGATIVE) mg/dL Urine Occult Blood (NEGATIVE) Urine Nitrite (NEGATIVE) Urine Bilirubin (NEGATIVE) Urine Urobilinogen (0.2) EU/dL Ur Leukocyte Esterase (NEGATIVE) Urine HCG, Qual (NEGATIVE) Urine Opiates Screen (NEGATIVE) Ur Buprenorphine Scrn (NEGATIVE) Ur Oxycodone Screen (NEGATIVE) Ur EDDP (Meth Metab) (NEGATIVE) Urine Methadone Screen (NEGATIVE) Ur Barbituates Screen (NEGATIVE) Ur Tricyclics Screen (NEGATIVE) Ur Phencyclidine Scrn (NEGATIVE) Ur Amphetamines Screen (NEGATIVE) U Methamphetamines Scrn (NEGATIVE) Urine MDMA Screen (NEGATIVE) U Benzodiazepines Scrn (NEGATIVE) Urine Cocaine Screen (NEGATIVE) U Marijuana (THC) Screen (NEGATIVE) Ethyl Alcohol (0-3) mg/dL COVID-19 (SPEEDY) Negative (NEGATIVE) 09/29/19 09/29/19 Range/Units 01:48 01:48 WBC (4.0-10.0) x10^3/uL RBC (4.00-5.50) x10^6/uL Hgb (12.0-16.0) g/dL Hct (33.0-47.0) % MCV (78.0-93.0) fL MCH (26.0-32.0) pg MCHC (32.0-36.0) g/dL RDW Coeff of Tc (10.0-15.0) % Plt Count (130-400) x10^3/uL Neut % (Auto) (50.0-80.0) % Lymph % (Auto) (25.0-50.0) % [place] % (Auto) (2.0-11.0) % Eos % (Auto) (0.0-4.0) % Baso % (Auto) (0.2-1.2) % PT (9.5-12.3) SEC INR (2.0-3.5) Sodium 138 (136-145) mmol/L Potassium 4.0 (3.5-5.1) mmol/L Chloride 100 (98-107) mmol/L Carbon Dioxide 30 (21-32) mmol/L Anion Gap 12.0 (10-20) mmol/L BUN 9 (7-18) mg/dL Creatinine 0.8 (0.55-1.02) mg/dL Est Cr Clr Drug Dosing 72.83 mL/min Estimated GFR (MDRD) > 60 Glucose 98 (74-106) mg/dL Lactic Acid 1.2 (0.4-2.0) mmol/L Calcium 9.6 (8.5-10.1) mg/dL Corrected Calcium 9.04 (8.5-10.1) mg/dL Magnesium 2.2 (1.8-2.4) mg/dL Total Bilirubin 0.6 (0.2-1.0) mg/dL AST 15 (15-37) U/L ALT 19 (14-59) U/L Alkaline Phosphatase 75 (46-116) U/L Troponin I < 0.017 (<=0.056) ng/mL C-Reactive Protein < 0.2 (<=0.9) mg/dL Total Protein 8.5 H (6.4-8.2) g/dL Albumin 4.7 (3.4-5.0) g/dL Globulin 3.8 Albumin/Globulin Ratio 1.24 Urine Color (YELLOW) Urine Appearance (CLEAR) Urine pH (5.0-8.0) Ur Specific [place] Urine Protein (NEGATIVE) mg/dL Urine Glucose (UA) (NEGATIVE) mg/dL Urine Ketones (NEGATIVE) mg/dL Urine Occult Blood (NEGATIVE) Urine Nitrite (NEGATIVE) Urine Bilirubin (NEGATIVE) Urine Urobilinogen (0.2) EU/dL Ur Leukocyte Esterase (NEGATIVE) Urine HCG, Qual (NEGATIVE) Urine Opiates Screen (NEGATIVE) Ur Buprenorphine Scrn (NEGATIVE) Ur Oxycodone Screen (NEGATIVE) Ur EDDP (Meth Metab) (NEGATIVE) Urine Methadone Screen (NEGATIVE) Ur Barbituates Screen (NEGATIVE) Ur Tricyclics Screen (NEGATIVE) Ur Phencyclidine Scrn (NEGATIVE) Ur Amphetamines Screen (NEGATIVE) U Methamphetamines Scrn (NEGATIVE) Urine MDMA Screen (NEGATIVE) U Benzodiazepines Scrn (NEGATIVE) Urine Cocaine Screen (NEGATIVE) U Marijuana (THC) Screen (NEGATIVE) Ethyl Alcohol < 3 (0-3) mg/dL COVID-19 (SPEEDY) (NEGATIVE) Meds: Medications Generic Name Dose Route Start Last Admin Trade Name Freq PRN Reason Stop Dose Admin Sodium Chloride 10 ml 09/29/19 01:31 Saline Flush FLUSH ASDIRECTED PRN Keep Vein Open Discontinued Medications Generic Name Dose Route Start Last Admin Trade Name Freq PRN Reason Stop Dose Admin Amoxicillin 1 packet 09/29/19 03:23 09/29/19 03:35 Take Home: Amoxicillin 875 Mg Tab, 2 Tab Pack PO 09/29/19 03:24 1 packet ONETIME ONE Administration Prednisone 1 packet 09/29/19 03:28 09/29/19 03:35 Take Home: Prednisone 20 Mg, 2 Tab Pack PO 09/29/19 03:29 1 packet ONETIME ONE Administration - Radiology Interpretation Free Text/Narrative:: CT brain negative for acute pathology Chest x-ray 2 view negative for acute pathology. Departure - Departure Time of Disposition: 03:37 Disposition: Home, Self-Care 01 Clinical Impression: Dental caries, Arthralgia, Atypical chest pain, History of fever - Discharge Information Instructions: Amoxicillin capsules or tablets, Prednisone tablets, Probiotics Referrals: Eli Hamilton MD [Primary Care Provider] - Forms: ED Department Discharge Additional Instructions: Prednisone 60mg once daily 1 daily for 6 days Amoxicillin 875mg 1 twice daily for 10 days Follow-up with Dr. Hamilton. I think it is possible that your poor dentition is causing many of these symptoms, and you would benefit from having dental extractions. Keep appointments with ENT regarding your throat swelling and rheumatology regarding your rashes, muscle pain, and joint pains. No obvious infection was noted in your chest. It is important to stop smoking, however. Sepsis Event Note (ED) - Evaluation Sepsis Screening Result: No Definite Risk - Focused Exam Vital Signs: Vital Signs Temp Pulse Resp BP Pulse Ox 09/29/19 01:05 36.4 C 90 14 133/87 100 - Problem List Review Problem List Initiated/Reviewed/Updated: Yes - My Orders Last 24 Hours: My Active Orders 09/29/19 01:29 Chest 2V [CR] Stat 09/29/19 01:30 Head wo Cont [CT] Stat CULTURE STREP A CONFIRMATION [RM] Stat 09/29/19 01:31 EKG Documentation Completion [RC] STAT Sodium Chloride 0.9% [Saline Flush] 10 ml FLUSH ASDIRECTED PRN Blood Culture x2 Reflex Set [OM.PC] Stat Peripheral IV Insertion Adult [OM.PC] Routine 09/29/19 01:32 CULTURE BLOOD [BC] Stat CULTURE BLOOD [BC] Stat STREP SCRN A RAPID W CULT CONF [RM] Stat - Assessment/Plan Last 24 Hours: My Active Orders 09/29/19 01:29 Chest 2V [CR] Stat 09/29/19 01:30 Head wo Cont [CT] Stat CULTURE STREP A CONFIRMATION [RM] Stat 09/29/19 01:31 EKG Documentation Completion [RC] STAT Sodium Chloride 0.9% [Saline Flush] 10 ml FLUSH ASDIRECTED PRN Blood Culture x2 Reflex Set [OM.PC] Stat Peripheral IV Insertion Adult [OM.PC] Routine 09/29/19 01:32 CULTURE BLOOD [BC] Stat CULTURE BLOOD [BC] Stat STREP SCRN A RAPID W CULT CONF [] Stat Plan: No obvious life-threatening pathology noted during her workup. EKG and troponin were negative. CT brain and chest x-ray were negative. CBC, CMP, CRP, lactic acid were all within or close to within normal limits. Covid 19 was negative, as was the patient's rapid strep. Informed that patient that a great many of her symptoms may be due to her chronic dental problems, including fevers, history of lymphadenopathy, fatigue, etc. Pt. is allergic to many antibiotics but states that she will take amoxicillin. She adamantly refused augmentin, because it "didn't work in the past". Pt. was informed that augmentin contained amoxicillin, and that augmentin was stronger, but she refused. Since there was no large abscesses or serious active infection noted, decision was made to start her on amoxicillin instead instead. She is unable to take azithromycin, EES, and most antibiotics used for dental infection. Will start the patient on a course of prednisone 60mg once daily for 6 days for her extremity/joint pain. Pt. is scheduled to have an appointment with rheum at the end of to determine the exact cause of this discomfort. Discussed patient's history and physical exam findings at length. She was quite upset that there was no obvious life-threatening medical conditions noted today. She was informed that the reason for the ER is to rule out life threats, and w as advised she needs further follow-up. Advised follow-up with Dr. Hamilton to coordinate with her. All questions were answered.
[2019-09-29 02:21] LABS: BUPRENORPHINE,URINE NEGATIVE (NEGATIVE); MARIJUANA,URINE NEGATIVE (NEGATIVE); METHYLENEDIOXYMETHAMP,UR NEGATIVE (NEGATIVE); PHENCYCLIDINE,URINE NEGATIVE (NEGATIVE)
[2019-09-29 02:38] LABS: CHLORIDE,CL 100 mmol/L (98-107); SODIUM,NA 138 mmol/L (136-145)
[2019-09-29] MEDS ORDERED: Take Home: Amoxicillin 875 MG Tab, 2 Tab Pack PO ONE (03:23)
[2019-09-29] MEDS ORDERED: Take Home: predniSONE 20 MG, 2 Tab Pack PO ONE (03:28)
--- NOTE | 2019-09-29 07:46 | CT ---
[id number] CT/CT Head WO IV EXAM: CT Head WO IV CLINICAL DATA: HEADACHE COMPARISON: CORRELATION IS MADE WITH JULY 17, 2019 FINDINGS: There is no mass or mass effect. There is no hemorrhage or hydrocephalus. There are no extra-axial fluid collections. There are no sites of abnormal attenuation. IMPRESSION: NO PLAIN CT EVIDENCE OF ACUTE INTRACRANIAL PROCESS. Judson Lorenzana MD 09/29/19 [id number] Thank you for allowing us to participate in the care of your patient.
--- NOTE | 2019-09-29 07:47 | CR ---
[id number] RAD/RAD Chest PA And Lateral EXAM: RAD Chest PA And Lateral CLINICAL DATA: HEMOPTYSIS COMPARISON: CORRELATION IS MADE WITH APRIL 29, 2017 FINDINGS: The lungs are clear. The cardiomediastinal contour is normal. The regional bones and soft tissues are unremarkable. IMPRESSION: NO ACUTE PROCESS. Judson Lorenzana MD 09/29/19 [id number] Thank you for allowing us to participate in the care of your patient.
== END 2019-09-29 03:50 | disposition home or self-care (01) ==
LOC: VM.ED 01:00
DX: R07.89 Other chest pain (principal); K02.9 Dental caries, unspecified; M25.50 Pain in unspecified joint; R59.0 Localized enlarged lymph nodes; M54.9 Dorsalgia, unspecified; Z20.828 Contact with and (suspected) exposure to other viral communicable diseases; Z88.1 Allergy status to other antibiotic agents; Z88.0 Allergy status to penicillin; Z79.82 Long term (current) use of aspirin
CPT/HCPCS: 36415; 70450; 71046; 80053; 80305-QW; 80307; 81003; 81025; 83605; 83735; 84484; 85025; 85610; 86140; 87040; 87081; 87880-QW; 93005; 93010; 99284; 99285-25; A9270-GY; J7512; U0002

== ENCOUNTER 2023-03-29 16:36 | Emergency (ER) | payer MEDICAID ==
[2023-03-29] MEDS: ALPRAZolam 0.5 MG Tab PO ONE ×2 (17:00→18:30)
[2023-03-29 17:17] LABS: BASOPHILS PERCENT AUTO 0.2 % (0.2-1.2); EOSINOPHILS PERCENT AUTO 0.1 % (0.0-4.0); HEMATOCRIT 39.4 % (33.0-47.0); HEMOGLOBIN 13.9 g/dL (12.0-16.0); IMMATURE GRAN ABSOLUTE AUTO 0.02 x10^3/uL (0.00-0.07); LYMPHOCYTES ABSOLUTE AUTO 1.3 x10^3/uL (1.0-4.8); LYMPHOCYTES PERCENT AUTO 13.8 % (25.0-50.0); MEAN CORPUSCULAR HEMOGLOBIN 32.6 pg (26.0-32.0); MEAN CORPUSCULAR HGB CONC 35.3 g/dL (32.0-36.0); MEAN CORPUSCULAR VOLUME 92.3 fL (78.0-93.0); MONOCYTES ABSOLUTE AUTO 0.9 x10^3/uL (0.0-0.8); NEUTROPHILS ABSOLUTE AUTO 7.1 x10^3/uL (1.8-7.7); NEUTROPHILS PERCENT AUTO 75.7 % (50.0-80.0); PLATELET COUNT,PLT 234 x10^3/uL (130-400); RED BLOOD CELL COUNT 4.27 x10^6/uL (4.00-5.50); WHITE BLOOD CELL COUNT,WBC 9.4 x10^3/uL (4.0-10.0)
[2023-03-29 17:37] LABS: ACETAMINOPHEN 0 ug/ml (10-30); ALANINE AMINOTRANSFERASE,ALT 19 U/L (14-59); ALBUMIN 4.5 g/dL (3.4-5.0); ALKALINE PHOSPHATASE 74 U/L (46-116); ANION GAP 16.4 mmol/L (5-15); ASPARTATE AMNIOTRANSFERASE,AST 18 U/L (15-37); BILIRUBIN TOTAL 0.9 mg/dL (0.2-1.0); BLOOD UREA NITROGEN,BUN 13 mg/dL (7-18); CALCIUM 9.3 mg/dL (8.5-10.1); CARBON DIOXIDE,CO2 27 mmol/L (21-32); CHLORIDE,CL 98 mmol/L (98-107); CREATININE 0.6 mg/dL (0.55-1.02); ESTIMATED GFR 109 mL/min (>=60); ETHANOL BLOOD MEDICAL < 3 mg/dL (0-3); GLUCOSE RANDOM 111 mg/dL (70-99); POTASSIUM,K 3.4 mmol/L (3.5-5.1); PROTEIN TOTAL,TP 7.5 g/dL (6.4-8.2); SODIUM,NA 138 mmol/L (136-145)
[2023-03-29 17:43] LABS: BILIRUBIN,URINE SMALL (NEGATIVE); COLOR,URINE YELLOW (YELLOW); GLUCOSE,URINE NEGATIVE (NEGATIVE); KETONES,URINE 40 mg/dL (NEGATIVE); LEUKOCYTE ESTERASE,URINE NEGATIVE (NEGATIVE); NITRITE,URINE NEGATIVE (NEGATIVE); OCCULT BLOOD,URINE NEGATIVE (NEGATIVE); PROTEIN,URINE 100 mg/dL (NEGATIVE); UROBILINOGEN,URINE 0.2 EU/dL (0.2)
[2023-03-29 17:45] LABS: AMPHETAMINES SCREEN, URINE NEGATIVE (NEGATIVE); APPEARANCE,URINE SLIGHTLY CLOUDY (CLEAR); BARBITURATE SCREEN,URINE NEGATIVE (NEGATIVE); BENZODIAZEPINES SCREEN,URINE NEGATIVE (NEGATIVE); COCAINE METABOLITES,URINE NEGATIVE (NEGATIVE); METHADONE SCREEN, URINE NEGATIVE (NEGATIVE); METHAMPHETAMINE SCREEN, URINE NEGATIVE (NEGATIVE); OXYCODONE SCREEN,URINE NEGATIVE (NEGATIVE); PCP SCREEN,URINE NEGATIVE (NEGATIVE); THC SCREEN,URINE 50 NG/ML POSITIVE (NEGATIVE)
[2023-03-29 17:46] LABS: BUPRENORPHINE SCREEN,URINE NEGATIVE (NEGATIVE)
[2023-03-29 17:49] LABS: BACTERIA,URINE RARE /HPF (NOT SEEN); MUCUS,URINE FEW /LPF (NOT SEEN); RBC,URINE 0-5 /HPF (NOT SEEN); SQUAMOUS EPITHELIAL CELLS,UR FEW /HPF (NOT SEEN); WBC,URINE 0-5 /HPF (NOT SEEN)
== END 2023-03-29 18:37 | disposition home or self-care (01) ==
LOC: VM.ED 16:36 → EEVIPCON 16:36 → VM.ED 18:37
DX: F41.1 Generalized anxiety disorder (principal); Z79.82 Long term (current) use of aspirin; Z79.899 Other long term (current) drug therapy; Z88.0 Allergy status to penicillin; Z88.1 Allergy status to other antibiotic agents; Z88.8 Allergy status to other drugs, medicaments and biological substances; Z88.5 Allergy status to narcotic agent
CPT/HCPCS: 36415; 80053; 80143; 80179; 80305-QW; 80307; 81001; 85025; 99285; A9270-GY